=== PATIENT | male | born 1950 | race Asian ===

== ENCOUNTER 2019-07-16 06:15 | Day surgery (SDC) | payer MEDICAID ==
[~2019-07-16] VITALS: Ht 162.6 cm; Wt 57.0 kg
[~2019-07-16 06:15] MED LIST: SODIUM CHLORIDE 0.9% 1,000 ML IV ONE
[2019-07-16] MEDS ORDERED: ALBUTEROL SULFATE 2.5 MG/0.5 ML NEB SOLUTION NEB ONE (06:16)
[2019-07-16] MEDS ORDERED: LIDOCAINE 4% 50 ML SOLUTION TP ONE (06:16)
[2019-07-16] MEDS ORDERED: LIDOCAINE 2% 30 ML JELLY TP ONE (06:16)
[2019-07-16] MEDS ORDERED: BENZOCAINE 20% 50 MCG/SPRAY 57 GM TP ONE (06:16)
[2019-07-16] MEDS ORDERED: SODIUM CHLORIDE 0.9% 1,000 ML IV ONE (06:30)
[2019-07-16] MEDS ORDERED: FLUT16H NASAL (07:34)
[2019-07-16] MEDS ORDERED: ATOR40TA28 PO (07:34)
[2019-07-16] MEDS ORDERED: CETI10TA59 PO (07:34)
[2019-07-16] MEDS ORDERED: FAMO20 PO (07:34)
[2019-07-16] MEDS ORDERED: MONT10TA21 PO (07:34)
[2019-07-16] MEDS ORDERED: LEVO500 PO (07:49)
[2019-07-16] MEDS ORDERED: PRED10 PO (07:49)
[2019-07-16] MEDS ORDERED: MIDAZOLAM HCL 2 MG/2 ML VIAL ONE (08:12)
[2019-07-16] MEDS ORDERED: FentaNYL CITRATE-PF 100 MCG/2 ML VIAL ONE (08:12)
[2019-07-16] MEDS ORDERED: MethylPREDNISolone SOD SUCC 125 MG/2 ML VIAL IVP ONE (09:15)
[2019-07-16] MEDS ORDERED: OXYGEN THERAPY IH SCH (20:00)
== END 2019-07-16 10:40 | disposition home or self-care (01) ==
LOC: SURGERY 06:15
PROVIDERS: ATTEND Internal Medicine Critical Care Medicine
DX: R05 Cough (principal); J38.4 Edema of larynx; B37.0 Candidal stomatitis; J98.8 Other specified respiratory disorders; J45.909 Unspecified asthma, uncomplicated; I10 Essential (primary) hypertension; Z79.899 Other long term (current) drug therapy; Z90.5 Acquired absence of kidney; Z98.890 Other specified postprocedural states
CPT/HCPCS: 31623; 31624; 71045; 87015; 87070; 87101; 87205; 87206; 87220; 88108; 88312; J2250; J2930; J3010; J7030